=== PATIENT | female | born 1980 | race African-American/Black ===

== ENCOUNTER 2018-03-21 05:35 | Day surgery (SDC) | payer BC ==
[2018-03-19 15:17] LABS: BASOPHILS 0.2 % (0-2); EOSINOPHILS 3.1 % (0-7); HEMATOCRIT 36.9 % (36.0-48.0); IMMATURE GRANULOCYTES 0.1 % (0-5); LYMPHOCYTES 32.8 % (15-50); MCHC 32.5 g/dL (31.0-37.0); MCV 82.9 fL (80.0-100.0); MEAN PLATELET VOLUME 9.2 fL (7.4-10.4); MONOCYTES 3.6 % (2-11); NEUTROPHILS 60.2 % (40-80); PLATELET COUNT 270 10x3/uL (130-400); RBC 4.45 10x6/uL (4.00-5.40); WBC 8.1 10x3/uL (4.8-10.8)
[~2018-03-21] VITALS: Ht 170.2 cm; Wt 113.4 kg
[2018-03-21 06:29] VITALS: BP 109/60; Ht 170.2 cm; Wt 113.4 kg
[2018-03-21 09:31] LABS: HCG URINE NEGATIVE (NEGATIVE)
--- NOTE | 2018-03-21 11:51 | NUR ---
DC INSTRUCTIONS GIVEN TO PT/FAMILY. STATE UNDERSTANDING. DC'D IV CATH FULLY INTACT.
--- NOTE | 2018-03-21 12:07 | NUR ---
PT LEFT UNIT VIA WC AT 1204
--- NOTE | 2018-04-09 16:44 | OP ---
PATIENT NAME: EVETTE BYERS MEDICAL RECORD: [id number] :78 LOCATION:D.OPS ADMISSION DATE: SURGEON: GLEN SWEENEY MD DATE OF OPERATION: 03/21/2018 PREOPERATIVE DIAGNOSIS: Menorrhagia. POSTOPERATIVE DIAGNOSIS: Menorrhagia. PROCEDURE: Diagnostic hysteroscopy and NovaSure endometrial ablation. SURGEON: Glen Sweeney MD ESTIMATED BLOOD LOSS: Minimal. ANESTHESIA: General endotracheal. INTRAVENOUS FLUIDS: Per anesthesia record. HYSTEROSCOPIC FLUID LOSS: Less than 100 cc of 0.9 normal saline. FINDINGS: 1. Grossly external genitalia cervix. 2. Grossly normal appearing endometrium. SPECIMENS: None. COMPLICATIONS: None apparent. PROCEDURE IN DETAIL: The patient was taken to the operating room where general anesthesia was achieved without any difficulty. The patient was then prepped and draped in normal sterile fashion in the dorsal lithotomy position in the [facility]. Following prep and drape, a straight catheterization was used to remove approximately 50-100 cc of clear yellow urine. At this point, a speculum was placed into the vagina and the single tooth tenaculum was used to grasp the anterior lip of the cervix. The patient sounded to approximately 10 cm. At this point, a 3 mm hysteroscope was then used to enter the endometrial canal and no obvious pathology was noted. The uterus sounded to approximately 10 cm. The cervix was then dilated to approximately 8 mm at which point the cervical measurements were performed and the NovaSure endometrial device was calibrated. The NovaSure was found to be in good working order and placed into the uterus and deployed properly. The width measurements were then placed into the machine. The pressure and vacuum prechecks passed and a full burn cycle was performed. Following the end of the NovaSure cycle, the NovaSure device was removed using the bow and arrow technique after being unlocked and the tenaculum was removed from the cervix. No bleeding was noted from the cervical os or the tenaculum sites. The patient tolerated the procedure well, was transferred to postanesthesia recovery stable without incident. TRANSINT:[id number] Voice Confirmation ID: [id number] DOCUMENT ID: [id number] OPERATIVE REPORT [id number] REGGIEEVETTE HENLEY GLEN SWEENEY MD at 1644 CC: [id number] DICTATION DATE: 04/06/181421 HUMAN FACTORS ENGINEER: 04/06/182116 [facility] 03/21/18 [place] [id number] [place] [id number]
== END 2018-03-21 12:04 | disposition home or self-care (01) ==
LOC: D.OPS 05:35 → D.PAN 07:30 → D.OPS 09:00
PROVIDERS: Obstetrics & Gynecology
DX: N92.0 Excessive and frequent menstruation with regular cycle (principal); K21.9 Gastro-esophageal reflux disease without esophagitis

== ENCOUNTER 2020-05-27 07:13 | Day surgery (SDC) | payer BC, OTHER ==
[2020-05-24 11:18] LABS: BASOPHILS 0.2 % (0-2); EOSINOPHILS 2.5 % (0-7); HEMATOCRIT 39.6 % (36.0-48.0); HEMOGLOBIN 12.6 g/dL (12-16); IMMATURE GRANULOCYTES 0.2 % (0-5); LYMPHOCYTE ABS# 2.93 10x3/uL (1.18-3.74); MCH 27.8 pg (26.0-34.0); MCHC 31.8 g/dL (31.0-37.0); MCV 87.4 fL (80.0-100.0); MONOCYTES 4.4 % (2-11); NEUTROPHILS 56.7 % (40-80); PLATELET COUNT 315 10x3/uL (130-400); RBC 4.53 10x6/uL (4.00-5.40); WBC 8.1 10x3/uL (4.8-10.8)
[~2020-05-27] VITALS: Ht 172.7 cm; Wt 117.9 kg
[~2020-05-27 07:13] MED LIST: DOXYCYCLINE HY100 M2 PO
[2020-05-27 08:00] VITALS: BP 139/72; Ht 172.7 cm; Wt 117.9 kg
[2020-05-27 08:04] LABS: HCG URINE NEGATIVE (NEGATIVE)
--- NOTE | 2020-05-27 15:51 | NUR ---
IV D/C'D WITH CANNULA INTACT, PRESSURE HELD AND DRSG PLACED. DISCHARGE INSTRUCTIONS GIVEN AND PT VERBALIZED AN UNDERSTANDING. PERIPAD IN PLACE
--- NOTE | 2020-06-06 06:58 | OP ---
PATIENT NAME: EVETTE BYERS MEDICAL RECORD: [id number] :78 LOCATION:D.OPS ADMISSION DATE: SURGEON: GLEN SWEENEY MD DATE OF OPERATION: 05/27/2020 PREOPERATIVE DIAGNOSIS: Menorrhagia, status post previous ablation. POSTOPERATIVE DIAGNOSIS: Menorrhagia, status post previous ablation. PROCEDURE: Hysteroscopy, dilation and curettage. SURGEON: Glen Sweeney. ANESTHESIA: General endotracheal. INTRAVENOUS FLUIDS: Per anesthesia record. HYSTEROSCOPIC FLUID LOSS: Less than 100 mL of 0.9 normal saline. SPECIMENS: Endometrial curettings. COMPLICATIONS: None apparent. FINDINGS: 1. Grossly normal appearing cervix and external genitalia. 2. Proliferative-appearing endometrium. PROCEDURE IN DETAIL: The patient was taken to the operating room where general anesthesia was achieved without any difficulty. The patient was then prepped and draped in normal sterile fashion in the dorsal lithotomy position in the [facility]. Bladder was drained of approximately 100 mL of clear yellow urine and a Graves speculum was placed in the vagina. The anterior lip of the cervix was grasped with a single-tooth tenaculum. The patient sounded to approximately 9.5 cm. The 3-mm hysteroscope was used to survey the endometrial cavity, which was found to have a copious proliferative endometrium. Following removal of the scope, the patient was dilated to approximately 7-Yoruba at which point a #1 curette was used to perform curettage of all 4 quadrants with good hemostasis noted status post. The tenaculum was removed. The patient was transported to postanesthesia recovery stable without incident. TRANSINT:[id number] Voice Confirmation ID: [id number] DOCUMENT ID: [id number] GLEN SWEENEY MD at 0658 CC: [id number] DICTATION DATE: 06/03/20 1509 OCCUPATIONAL THER: 06/04/20 0036 [facility] 05/27/20 [place] [id number]
== END 2020-05-27 11:55 | disposition home or self-care (01) ==
LOC: D.OPS 07:13
PROVIDERS: ATTEND Obstetrics & Gynecology
DX: N92.1 Excessive and frequent menstruation with irregular cycle (principal); L73.2 Hidradenitis suppurativa